=== PATIENT | male | born 1970 | race Two or more races ===

== ENCOUNTER 2020-06-24 08:25 | Day surgery (SDC) | payer OTHER ==
[~2020-06-24 08:25] MED LIST: DEXAMETHASONE SOD PHOSPHATE INJ 4 MG/1 ML VIAL ONE; FENTANYL CITRATE INJ/PF 100 MCG/2 ML AMPUL ONE; MIDAZOLAM 2 MG/2 ML INJ ONE; ONDANSETRON HCL INJ/PF 4 MG/2 ML SDV ONE; PROPOFOL INJ 200 MG/20 ML VIAL IV ONE
[2020-06-24] MEDS ORDERED: SCOPOLAMINE HYDROBROMIDE 1.5 MG PATCH.TD72 ONE (09:03)
[2020-06-24] MEDS ORDERED: SUCCINYLCHOLINE CHLORIDE INJ 200 MG/10 ML VIAL ONE (12:34)
[2020-06-24] MEDS ORDERED: EPINEPHRINE INJ/PF 1 MG/1 ML AMPULE ONE (14:08)
[2020-06-24] MEDS ORDERED: BUPIVACAINE HCL 0.5 % INJ/PF 30 ML SDV ONE (14:08)
[2020-06-24] MEDS ORDERED: LIDOCAINE 1% INJ-PF (10 MG/ML) 30 ML SDV ONE (14:08)
[2020-06-24] MEDS ORDERED: KETOROLAC TROMETHAMINE INJ/PF 30 MG/1 ML SDV ONE (14:08)
[2020-06-24] MEDS ORDERED: MORPHINE SULFATE 10 MG/ML INJ IV PRN ×2 (14:22→14:30)
[2020-06-24] MEDS ORDERED: OXYCODONE-ACETAMINOPHEN 5-325 MG TABLET PO PRN ×3 (14:22→14:30)
[2020-06-24] MEDS ORDERED: ONDANSETRON HCL INJ/PF 4 MG/2 ML SDV IV PRN ×2 (14:22→14:30)
[2020-06-24] MEDS ORDERED: RINGERS SOLUTION,LACTATED 1,000 ML IV PRN (14:22)
[2020-06-24] MEDS ORDERED: FENTANYL CITRATE INJ/PF 100 MCG/2 ML AMPUL IV PRN ×3 (14:30)
[2020-06-24] MEDS ORDERED: MEPERIDINE HCL/PF INJ 25 MG/1 ML DISP.SYRIN IV PRN (14:30)
[2020-06-24] MEDS ORDERED: DIPHENHYDRAMINE HCL 50 MG/ML VIAL IV PRN (14:30)
[2020-06-24] MEDS ORDERED: PROMETHAZINE HCL INJ 25 MG/1 ML VIAL IV PRN ×2 (14:30)
[2020-06-24] MEDS ORDERED: CEFAZOLIN INJ 1 GM VIAL ONE (14:39)
[2020-06-24] MEDS ORDERED: OXYCODONE-ACETAMINOPHEN 5-325 MG TABLET ONE (16:05)
--- NOTE | 2020-06-24 16:05 | Operative Report ---
Operative Report DATE OF SURGERY: 06/24/20 PREOPERATIVE DIAGNOSIS: Left medial meniscus tear POSTOPERATIVE DIAGNOSIS: Left medial meniscus tear OPERATION: Left knee arthroscopy, partial medial meniscectomy, chondroplasty. SURGEON: TUNG DUMONT JR ANESTHESIA: GA COMPLICATIONS: None ESTIMATED BLOOD LOSS: 10 cc PROCEDURE: DESCRIPTION OF THE PROCEDURE: The patient was placed supine on the operating room table. After the patient was placed under general anesthesia, and appropriate timeout was performed. The patient was prepped and draped in the usual sterile fashion for arthroscopic surgery. The left lower extremity was then exsanguinated with the use of an Esmarch bandage and the tourniquet was inflated. The operation commenced with creation of the lateral portal with an 11 blade. The arthroscope was directed into the suprapatellar pouch with the knee held in extension. A systematic examination of the left knee was begun arthroscopically. The patellofemoral articulation was visualized and good cartilage was found without softening, fissuring or fraying. The medial gutter was entered. No loose bodies were identified. The medial compartment was then entered and the medial portal was established under direct visualization with a spinal needle. The arthroscopic probe was used to inspect the contents of the medial compartment. The meniscus was inspected and on initial inspection looked good without visible tearing or posterior instability. The notch was then visualized. The anterior cruciate ligament and PCL were found to be intact. The arthroscope was directed into the lateral compartment. The meniscus was inspected with a probe and found intact without a tear, and appropriately stable. A subsequently the lateral femoral condyle and the lateral tibial plateau were inspected with a probe. This found mild softening of the tibial cartilage, strong intact femoral cartilage, otherwise grade 1 changes without advanced degeneration. Portals were exchanged to complete full visualization of the medial compartment. The patellofemoral compartment was revisited and it was found to be clear of any impinging synovium or fat pad or plica. I revisited the medial compartment to explore the meniscus further. Given the findings of a meniscus tear on MRI that I did not appreciate directly. Upon probing the medial meniscus further, and correlating to the patient's clinical exam findings of direct medial pain as well as the MRI findings, there was a rent superiorly along the direct medial to the medial posterior meniscus that I could sink my probe into. I also found substantial softening of the medial femoral condyle as well as the tibial plateau. There was grade 2-3 changes throughout the tibial plateau while the medial femoral condyle appeared relatively normal with 1 small area of thinning. I used a biter to remove a portion of the central meniscus which then revealed a laminar meniscus tear th rough the periphery. I proceeded to remove the inferior leaf and then debride to a stable base with a suction shaver. A mixture of Marcaine, lidocaine and toradol was injected into the right knee. The instruments were then removed. The portals were closed with 3-0 nylon and Xeroform and a light compressive dressing was applied. The tourniquet was deflated. The patient was recovered from his anesthetic and was returned to the recovery room in stable condition. There were no complications.
--- NOTE | 2020-06-24 16:09 | Discharge Summary ---
Discharge Summary (SDC) - Discharge Final Diagnosis: Left knee medial meniscus tear, chondromalacia Date of Surgery: 06/24/20 Discharge Date: 06/24/20 Condition: Stable Treatment or Instructions: Full details of postoperative instructions have been provided to the patient in the clinic. Additionally they should maintain their bandage in place for the next 2 days. They may change as needed after this. They have been told to expect some mild drainage in the meantime. They are to follow-up with me in approximately 10 days. Until that time they can shower but should dab the incisions with sterile alcohol solution after each shower and redress the wound. They are weightbearing as tolerated I have provided the patient with a prescription for pain medication in the hospital today on paper, given [facility] Follow-up with Dr. Jorge Luis Alvarez, orthopedic surgeon at [facility] for surgery, in 10 days. Call for an appointment. . [address], [place] [address] Referrals: RAVI ANTOINE, [employer] [Primary Care Provider] - Discharge Diet: As Tolerated Respiratory Treatments at Home: Deep Breathing/Coughing Discharge Activity: Activity As Tolerated, Keep Legs Elevated, No Lifting Over 10 Pounds, Slowly Increase Activity, No tub bath, Walk Frequently Adaptive Devices on Discharge: Axillary Crutches - Patient has his own Report the Following to Your Physician Immediately: Shortness of Breath, Fever over 101 Degrees, Unusual Bleeding, Drainage-Yellow
[2020-06-24 18:07] VITALS: BP 136/95
== END 2020-06-24 17:05 | disposition home or self-care (01) ==
LOC: OROUT 08:25
PROVIDERS: ATTEND Orthopaedic Surgery
DX: S83.242A Other tear of medial meniscus, current injury, left knee, initial encounter (principal); X58.XXXA Exposure to other specified factors, initial encounter; Y99.1 Military activity; M94.262 Chondromalacia, left knee; Z20.828 Contact with and (suspected) exposure to other viral communicable diseases; F17.210 Nicotine dependence, cigarettes, uncomplicated
CPT/HCPCS: 87635; 01400; 29881; J2250; J3490 ×2; J0690; J1100; J0171; J3010; J1885; J0330; J2405; J2704; C9803; 1400